=== PATIENT | female | born 1960 | race Caucasian/White ===

== ENCOUNTER 2022-09-18 19:26 | Emergency (ER) | payer OTHER ==
[2022-09-18 19:54] VITALS: BP 157/88; PULSE 76; RESP 16; TEMP 98.7; BMI 24.5
[2022-09-18 20:01] LABS: HEMATOCRIT 41.5 % (32.4-45.2); HEMOGLOBIN 14.4 G/dL (10.7-15.3); MCHC 34.7 g/dl (32.0-36.0); MEAN CELL VOLUME 86.5 fl (80-96); MEAN PLT VOLUME 7.5 fl (7.5-11.1); PLATELET COUNT 311.1 10^3/uL (134-434); RDW 14.1 % (11.6-15.6); WHITE BLOOD COUNT 9.2 10^3/uL (4.0-10.8)
[2022-09-18 20:09] LABS: ALBUMIN 4.5 g/dl (3.4-5.0); BILIRUBIN,TOTAL 0.8 mg/dl (0.2-1); CALCIUM 9.8 mg/dl (8.5-10); CREATININE 0.6 mg/dl (0.55-1.3); TOT PROT 7.7 g/dl (6.4-8.2)
[2022-09-18 21:14] LABS: PLATELET ESTIMATE ADEQUATE
[2022-09-18] MEDS ORDERED: predniSONE 20 MG TABLET (UD) PO ONE (22:23)
[2022-09-18] MEDS ORDERED: predniSONE 20 MG TABLET (UD) ONE (22:25)
== END 2022-09-18 22:32 | disposition home or self-care (01) ==
LOC: FER 19:26
DX: R22.1 Localized swelling, mass and lump, neck (principal)
CPT/HCPCS: 36415; 70491-TC; 80053; 85027; 99285-25; Q9967